=== PATIENT | female | born 1990 | race Caucasian/White ===

== ENCOUNTER 2022-12-30 11:48 | Emergency (ER) | payer SELFPAY ==
[2022-12-30] MEDS ORDERED: TDAP (DIPHTH,PERTUSS(ACELL),TET VAC) 0.5 ML VIAL IMVAC ONE (12:12)
[2022-12-30] MEDS ORDERED: CEPHALEXIN 250 MG CAP ONE (12:12)
[2022-12-30] MEDS ORDERED: LIDOCAINE 1% MPF 30 ML VIAL ONE (12:14)
[2022-12-30] MEDS ORDERED: BUPIVACAINE 0.5% PF 10 ML VIAL ONE (12:14)
--- NOTE | 2022-12-30 12:26 | EDPHYS ---
Physician Documentation [facility] Name: Zeinab Sutton Age: 32 yrs Sex: Female : 1990 Arrival Date: 12/30/2022 Time: 11:48 Bed 12 Private MD: JASON Physician Blayne Schmidt HPI: 12/30 12:19 This 32 yrs old Female presents to ER via Ambulatory with complaints of jac Finger Injury. 12:19 Trauma demographics: County: The injury occurred in [place] Location of Injury: The jac injury occurred at work. Mechanism of injury: knife. Associated injuries: The patient sustained laceration, 1 cm(s), painful injury. Onset: The symptoms/episode began/occurred just prior to arrival. The patient has not experienced similar symptoms in the past. Historical: - Allergies: 11:53 No Known Allergies; ap3 - Home Meds: 11:53 None [Active]; ap3 - PMHx: 11:53 None; ap3 - PSHx: 11:53 None; ap3 - Immunization history:: Client reports having NOT received the Covid vaccine. - Social history:: Smoking status: Patient denies any tobacco usage or history of. ROS: 12:20 Constitutional: Negative for fever, chills, and weight loss, Eyes: Negative for injury, jac pain, redness, and discharge, ENT: Negative for injury, pain, and discharge, Neck: Negative for injury, pain, and swelling, Cardiovascular: Negative for chest pain, palpitations, and edema, Respiratory: Negative for shortness of breath, cough, wheezing, and pleuritic chest pain, Abdomen/GI: Negative for abdominal pain, nausea, vomiting, diarrhea, and constipation, Back: Negative for injury and pain, : Negative for injury, bleeding, discharge, and swelling, Skin: Negative for injury, rash, and discoloration, Neuro: Negative for headache, weakness, numbness, tingling, and seizure, Psych: Negative for depression, anxiety, suicide ideation, homicidal ideation, and hallucinations, Allergy/Immunology: Negative for hives, rash, and allergies, Endocrine: Negative for neck swelling, polydipsia, polyuria, polyphagia, and marked weight changes. 12:20 MS/extremity: Positive for decreased range of motion, pain, tenderness, of the dorsal aspect of distal phalanx of left thumb and palmar aspect of distal phalanx of left thumb. Exam: 12:20 Constitutional: This is a well developed, well nourished patient who is awake, alert, jac and in no acute distress. Head/Face: Normocephalic, atraumatic. Eyes: Pupils equal round and reactive to light, extra-ocular motions intact. Lids and lashes normal. Conjunctiva and sclera are non-icteric and not injected. Cornea within normal limits. Periorbital areas with no swelling, redness, or edema. ENT: Nares patent. No nasal discharge, no septal abnormalities noted. Tympanic membranes are normal and external auditory canals are clear. Oropharynx with no redness, swelling, or masses, exudates, or evidence of obstruction, uvula midline. Mucous membranes moist. Neck: Trachea midline, no thyromegaly or masses palpated, and no cervical lymphadenopathy. Supple, full range of motion without nuchal rigidity, or vertebral point tenderness. No Meningismus. Chest/axilla: Normal chest wall appearance and motion. Nontender with no deformity. No lesions are appreciated. Cardiovascular: Regular rate and rhythm with a normal S1 and S2. No gallops, murmurs, or rubs. Normal PMI, no JVD. No pulse deficits. Respiratory: Lungs have equal breath sounds bilaterally, clear to auscultation and percussion. No rales, rhonchi or wheezes noted. No increased work of breathing, no retractions or nasal flaring. Abdomen/GI: Soft, non-tender, with normal bowel sounds. No distension or tympany. No guarding or rebound. No evidence of tenderness throughout. Back: No spinal tenderness. No costovertebral tenderness. Full range of motion. Skin: Warm, dry with normal turgor. Normal color with no rashes, no lesions, and no evidence of cellulitis. Neuro: Awake and alert, GCS 15, oriented to person, place, time, and situation. Cranial nerves II-XII grossly intact. Motor strength 5/5 in all extremities. Sensory grossly intact. Cerebellar exam normal. Normal gait. Psych: Awake, alert, with orientation to person, place and time. Behavior, mood, and affect are within normal limits. 12:20 Musculoskeletal/extremity: ROM: full active range of motion, full passive range of motion, limited active range of motion due to pain, limited passive range of motion due to pain, Circulation is intact in all extremities. Sensation intact. Compartment Syndrome exam of affected extremity: is normal. Tendon exam: specific tendon testing normal through active and passive range of motion 12:20 Skin: injury, laceration(s), the wound is approximately 1 cm(s), with a depth of .25 cm(s), of the palmar aspect of distal phalanx of left thumb and left thumbnail. Vital Signs: 11:54 BP 177 / 105; Pulse 100; Resp 17; Temp 97.9; Pulse Ox 100% ; Pain 5/10; ap3 11:54 Pain Scale: Adult ap3 Laceration: 12:20 Wound Repair of 1cm ( 0.4in ) subcutaneous laceration to left thumbnail and palmar jac aspect of distal phalanx of left thumb. Irregularly shaped.. Distal neuro/vascular/tendon intact. Anesthesia: Digital block administered with 5 mls of 0.5% marcaine. Wound prep: Moderate cleansing with betadine, Copious irrigation. Skin closed with 3 5-0 Prolene using interrupted sutures and sterile technique. Dressed with Neosporin, non-adherent dressing. Patient tolerated well. MDM: 11:58 Patient medically screened. [facility] 12:20 Data reviewed: vital signs, nurses notes. Consideration of Admission/Observation jac Escalation of care including admission/observation considered. I considered the following discharge prescriptions or medication management in the emergency department Medications were administered in the Emergency Department. See MAR. Test considered but Not performed: Labs: no labs. Care significantly affected by the following chronic conditions: none. Counseling: I had a detailed discussion with the patient and/or guardian regarding: the historical points, exam findings, and any diagnostic results supporting the discharge/admit diagnosis, the need for outpatient follow up, for definitive care, a family practitioner. 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 cm10 Exp: 06/01/2023. Lot #: [id number]. } Route: IM; Site: left deltoid; 12:53 Follow up: Response: (VIS) Vaccine information sheet provided today. Questions and/or cm10 concerns addressed. VIS edition date: Jan 27, 2021.; No adverse reaction 12:30 Drug: Cephalexin PO 500 mg Route: PO; cm10 12:53 Follow up: Response: No adverse reaction cm10 12:54 Drug: Lidocaine Infiltration (1 %) 20 ml {Note: Given by Dr. Schmidt.} Volume: 20 ml; cm10 Route: Infiltration; 12:54 Drug: Bupivacaine Infiltration (0.5 %) 10 ml {Note: Given by Dr. Schmidt.} Volume: 10 cm10 ml; Route: Infiltration; Disposition Summary: 12/30/22 12:26 Discharge Ordered Location: Home jac Problem: new jac Symptoms: have improved jac Condition: Stable jac Diagnosis - Laceration without foreign body of left hand - thumb jac - Laceration without foreign body of finger with damage to nail jac Followup: jac - With: Private Physician - When: 2 - 3 days - Reason: Recheck today's complaints, Continuance of care, Re-evaluation by your physician Followup: jac - With: Shalom Nunez MD - When: - Reason: Recheck today's complaints, Re-evaluation by your physician Discharge Instructions: - Discharge Summary Sheet jac - Laceration Care, Adult jac - Nail Bed Injury [facility] - Laceration Care, Adult, [id number] [facility] Forms: - Medication Reconciliation Form [facility] - Thank You Letter [facility] - Antibiotic Education [facility] - Prescription Opioid Use [facility] - [email or web address] [facility] - Work release form cm10 Prescriptions: - Centany 2 % Topical ointment - apply 1 application by TOPICAL route 3 times per day; 15 gram; Refills: 0, [facility] Product Selection Permitted - acetaminophen-codeine 300-30 mg Oral tablet - take 2 tablet by ORAL route every 6 hours as needed for pain; 20 tablet; [facility] Refills: 0, Product Selection Permitted - Cephalexin 500 mg Oral Capsule - take 1 capsule by ORAL route every 6 hours for 7 days; 28 capsule; Refills: 0, [facility] Product Selection Permitted Signatures: Blayne Schmidt MD MD cha Prokisch, Amanda, RN RN ap3 Shy Brown RN RN 10
--- NOTE | 2022-12-30 12:26 | ER ---
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 Coronavirus screen: At this time, the client does not indicate any symptoms associated with coronavirus-19. Ebola Screen: No symptoms or risks identified at this time. Initial Sepsis Screen: Does the patient meet any 2 criteria? No. Patient's initial sepsis screen is negative. Does the patient have a suspected source of infection? No. Patient's initial sepsis screen is negative. Risk Assessment: Do you want to hurt yourself or someone else? Patient reports no desire to harm self or others. Onset of symptoms was December 30, 2022. 11:52 Method Of Arrival: Ambulatory ap3 11:54 Acuity: [facility] 3 ap3 Triage Assessment: 11:53 General: Appears in no apparent distress. Behavior is calm, cooperative, appropriate ap3 for age. Pain: Complains of pain in left thumb Pain currently is 5 out of 10 on a pain scale. Pain began suddenly. Neuro: Level of Consciousness is awake, alert, obeys commands, Oriented to person, place, time, situation. Cardiovascular: Patient's skin is warm and dry. Respiratory: Airway is patent Respiratory effort is even, unlabored, Respiratory pattern is regular, symmetrical. Musculoskeletal: Range of motion: intact in all extremities. Injury Description: Laceration sustained to left thumb was sustained less than 30 minutes ago. Historical: - Allergies: 11:53 No Known Allergies; ap3 - Home Meds: 11:53 None [Active]; ap3 - PMHx: 11:53 None; ap3 - PSHx: 11:53 None; ap3 - Immunization history:: Client reports having NOT received the Covid vaccine. - Social history:: Smoking status: Patient denies any tobacco usage or history of. Screenin:55 [facility] ED Fall Risk Assessment (Adult) History of falling in the last 3 months, ap3 including since admission No falls in past 3 months (0 pts). Abuse screen: Denies threats or abuse. Nutritional screening: No deficits noted. Tuberculosis screening: No symptoms or risk factors identified. Assessment: 12:36 Reassessment: No changes from previously documented assessment. Patient and/or family cm10 updated on plan of care and expected duration. Pain level reassessed. Patient is alert, oriented x 3, equal unlabored respirations, skin warm/dry/pink. Vital Signs: 11:54 BP 177 / 105; Pulse 100; Resp 17; Temp 97.9; Pulse Ox 100% ; Pain 5/10; ap3 11:54 Pain Scale: Adult ap3 ED Course: 11:50 Patient arrived in ED. ts1 11:55 Triage completed. ap3 11:55 Arm band placed on right wrist. ap3 11:58 Blayne Schmidt MD is Attending Physician. jac 12:01 Shy Brown, STEPHANY is Primary Nurse. cm10 12:17 Patient has correct armband on for positive identification. Bed in low position. Call cm10 light in reach. 12:33 Awaiting: lac repair for discharge. cm10 12:42 ED physician to see patient. cm10 13:09 Shalom Nunez MD is Referral Physician. jac 13:25 No provider procedures requiring assistance completed. Patient did not have IV access cm10 during this emergency room visit. Wound care: to laceration was dressed with Neosporin, Vaseline gauze. 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 cm10 Exp: 06/01/2023. Lot #: [id number]. } Route: IM; Site: left deltoid; 12:53 Follow up: Response: (VIS) Vaccine information sheet provided today. Questions and/or cm10 concerns addressed. VIS edition date: Jan 27, 2021.; No adverse reaction 12:30 Drug: Cephalexin PO 500 mg Route: PO; cm10 12:53 Follow up: Response: No adverse reaction cm10 12:54 Drug: Lidocaine Infiltration (1 %) 20 ml {Note: Given by Dr. Schmidt.} Volume: 20 ml; cm10 Route: Infiltration; 12:54 Drug: Bupivacaine Infiltration (0.5 %) 10 ml {Note: Given by Dr. Schmidt.} Volume: 10 cm10 ml; Route: Infiltration; Medication: 12:17 Vaccine Information Statement (VIS) provided today. Questions and/or concerns cm10 addressed. VIS edition date: January 27, 2021. Outcome: 12:26 Discharge ordered by . jac 13:25 Discharged to home ambulatory, with friend. cm10 13:25 Condition: good 13:25 Discharge instructions given to patient, Instructed on discharge instructions, follow up and referral plans. medication usage, wound care, Demonstrated understanding of instructions, follow-up care, medications, wound care, Prescriptions given X 3. 13:25 Patient left the ED. cm10 Signatures: Blayne Schmidt MD MD cha Prokisch, Amanda, RN RN ap3 Penny Valadez PAS PAS ts1 Shy Brown, STEPHANY RN cm10
[2022-12-30 14:27] VITALS: BP 177/105; TEMP 97.9; O2SAT 100
== END 2022-12-30 13:25 | disposition home or self-care (01) ==
LOC: ER 11:48
PROC: 0HQGXZZ Repair Left Hand Skin, External Approach (ICD-10-PCS; principal; 2022-12-30)
DX: S61.112A Laceration without foreign body of left thumb with damage to nail, initial encounter (principal); Z23 Encounter for immunization
CPT/HCPCS: 90471; 99284; J2001

== ENCOUNTER 2023-01-16 14:34 | Emergency (ER) | payer SELFPAY ==
--- NOTE | 2023-01-16 15:47 | EDPHYS ---
Physician Documentation [facility] Name: Zeinab Sutton Age: 32 yrs Sex: Female : 1990 Arrival Date: 01/16/2023 Time: 14:34 Bed 9 Private MD: ED Physician Apoorva Guzman HPI: 01/16 16:05 This 32 yrs old Female presents to ER via Ambulatory with complaints of Suture Removal. snw 16:05 The patient has sutures on the left thumb/nail. Sutures/andrew progress: The patient snw has no c/o's. The wound is well-healing with no redness, swelling, discharge, or dehiscence reported. The patient has not experienced similar symptoms in the past. as noted. 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 - Social history:: Smoking status: Patient denies any tobacco usage or history of. ROS: 16:05 Constitutional: Negative for fever, chills, and weight loss, Eyes: Negative for injury, snw pain, redness, and discharge, ENT: Negative for injury, pain, and discharge, Neck: Negative for injury, pain, and swelling, Cardiovascular: Negative for chest pain, palpitations, and edema, Respiratory: Negative for shortness of breath, cough, wheezing, and pleuritic chest pain, Abdomen/GI: Negative for abdominal pain, nausea, vomiting, diarrhea, and constipation, Back: Negative for injury and pain, : Negative for injury, bleeding, discharge, and swelling, MS/Extremity: Negative for injury and deformity, Skin: Negative for injury, rash, and discoloration, Neuro: Negative for headache, weakness, numbness, tingling, and seizure, Psych: Negative for depression, anxiety, suicide ideation, homicidal ideation, and hallucinations. Exam: 16:03 Constitutional: This is a well developed, well nourished patient who is awake, alert, snw and in no acute distress. 16:03 Skin: Appearance: normal except for affected area, injury, laceration(s), on the 9 of this month pt cut left thumb/nail, the area was sutured, here for suture removal, wound edges well approximated. Vital Signs: 15:02 BP 156 / 107; Pulse 85; Resp 16 S; Temp 97.9(TE); Pulse Ox 100% on R/A; aa5 16:03 BP 158 / 109; Pulse 70; Resp 16; ll1 MDM: 15:08 Patient medically screened. snw 16:05 Data reviewed: vital signs, nurses notes. Counseling: I had a detailed discussion with snw the patient and/or guardian regarding: the historical points, exam findings, and any diagnostic results supporting the discharge/admit diagnosis, the need for outpatient follow up, for definitive care, to return to the emergency department if symptoms worsen or persist or if there are any questions or concerns that arise at home. Special discussion: Based on the history and exam findings, there is no indication for further emergent testing or inpatient evaluation. I discussed with the patient/guardian the need to see the primary care provider for further evaluation of the symptoms. 01/16 15:47 Order name: Wound dressing; Complete Time: 16:02 snw Administered Medications: No medications were administered Disposition Summary: 01/16/23 15:46 Discharge Ordered Location: Home snw Condition: Stable snw Diagnosis - Encounter for removal of sutures snw Followup: snw - With: Emergency Department - When: As needed - Reason: Worsening of condition Followup: snw - With: Private Physician - When: 5 - 6 days - Reason: Recheck today's complaints, Continuance of care, Re-evaluation by your physician Discharge Instructions: - Discharge Summary Sheet snw - Suture Removal, Care After snw - Incision Care, Adult snw - Wound Care, Adult snw Forms: - Medication Reconciliation Form snw - Thank You Letter snw - Antibiotic Education snw - Prescription Opioid Use snw - Patient Portal Instructions snw Signatures: Milla Centeno FNP-C BAT PERSON-Csnw Bettie Mohan, RN RN aa5 Corrections: (The following items were deleted from the chart) 15:03 15:03 Immunization history: Adult Immunizations unknown, aa5 aa5
--- NOTE | 2023-01-16 15:47 | ER ---
Nurse's Notes [facility] Name: Zeinab Sutton Age: 32 yrs Sex: Female : 1990 Arrival Date: 01/16/2023 Time: 14:34 Bed 9 Private MD: Diagnosis: Encounter for removal of sutures Presentation: 01/16 15:02 Chief complaint: Patient states: need for suture removal to left thumb, sutures placed aa5 12/30/22. 15:02 Coronavirus screen: At this time, the client does not indicate any symptoms associated aa5 with coronavirus-19. Ebola Screen: Patient denies travel to an Ebola-affected area in the 21 days before illness onset. Initial Sepsis Screen: Does the patient meet any 2 criteria? No. Patient's initial sepsis screen is negative. Does the patient have a suspected source of infection? No. Patient's initial sepsis screen is negative. Risk Assessment: Do you want to hurt yourself or someone else? Patient reports no desire to harm self or others. Onset of symptoms was December 2022. 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 - Social history:: Smoking status: Patient denies any tobacco usage or history of. Screenin:03 [facility] ED Fall Risk Assessment (Adult) Score/Fall Risk Level 0 - 2 = Low Risk ll1 Oriented to surroundings, Maintained a safe environment, Educated pt \T\ family on fall prevention, incl call for assistance when getting out of bed, Hourly rounding (assess needs \T\ fall precautionary measures) done. Abuse screen: Denies threats or abuse. Nutritional screening: No deficits noted. Tuberculosis screening: No symptoms or risk factors identified. Assessment: 16:02 General: Appears in no apparent distress. Behavior is calm, cooperative, appropriate ll1 for age. Pain: Denies pain. Derm: Reports stitches removed from finger. Musculoskeletal: Circulation, motion, and sensation intact. Capillary refill < 3 seconds. Vital Signs: 15:02 BP 156 / 107; Pulse 85; Resp 16 S; Temp 97.9(TE); Pulse Ox 100% on R/A; aa5 16:03 BP 158 / 109; Pulse 70; Resp 16; ll1 ED Course: 14:36 Patient arrived in ED. mg5 15:02 Arm band placed on. aa5 15:03 Triage completed. aa5 15:05 Milla Centeno FNP-C is [facility]. snw 15:05 Apoorva Guzman MD is Attending Physician. snw 16:02 Wound care: to s/p suture repair located on left hand was dressed with Neosporin, band ll1 aid, Patient tolerated well. 16:04 Patient has correct armband on for positive identification. Bed in low position. Call ll1 light in reach. Provided Education on: n/a. Cardiac monitoring not applicable on this patient. 16:04 No provider procedures requiring assistance completed. Patient did not have IV access ll1 during this emergency room visit. Administered Medications: No medications were administered Medication: 16:04 VIS not applicable for this client. ll1 Outcome: 15:46 Discharge ordered by . snw 16:04 Discharged to home ambulatory. ll1 16:04 Condition: stable 16:04 Discharge instructions given to patient, Instructed on discharge instructions, follow up and referral plans. Demonstrated understanding of instructions, follow-up care, wound care. 16:04 Patient left the ED. ll1 Signatures: Milla Centeno FNP-C LUNG GUN OPERATOR-Bettie Reyna RN RN aa5 Charlotte Aviles RN RN ll1 Tanesha Jha mg5 Corrections: (The following items were deleted from the chart) 15:03 15:03 Immunization history: Adult Immunizations unknown, aa5 aa5 15:04 15:02 Pulse 85bpm; Resp 16bpm; Spontaneous; Pulse Ox 100% RA; Temp 97.9F Temporal; aa5 aa5
[2023-01-16 16:09] VITALS: TEMP 97.9; O2SAT 100
[2023-01-16 16:11] VITALS: BP 158/109
== END 2023-01-16 16:04 | disposition home or self-care (01) ==
LOC: ER 14:34
DX: Z48.02 Encounter for removal of sutures (principal)
CPT/HCPCS: 99283